=== PATIENT | male | born 1995 | race Caucasian/White ===

== ENCOUNTER 2019-03-27 01:48 | Emergency (ER) | payer SELFPAY, OTHER ==
[2019-03-27] MEDS: METHOCARBAMOL 750 MG TAB PO (02:44)
[2019-03-27] MEDS: ACETAMINOPHEN 500 MG TAB PO (02:44)
== END 2019-03-27 05:34 | disposition home or self-care (01) ==
LOC: FTE 01:48
DX: M54.9 Dorsalgia, unspecified (principal); M79.642 Pain in left hand; M79.641 Pain in right hand; M25.531 Pain in right wrist; M25.532 Pain in left wrist
CPT/HCPCS: 73110; 73110-50; 73130-50; 99284-25